=== PATIENT | male | born 1965 | race Caucasian/White ===

== ENCOUNTER 2024-02-24 10:30 | Day surgery (SDC) | payer BC, SELFPAY ==
[2024-02-24] VITALS (13 sets, daily range): BP systolic 105–141; BP diastolic 66–78; BMI 29.8
[2024-02-24 11:20] LABS: INR 2.05; PT 23.2 Sec (11.4-14.6)
[2024-02-24] MEDS: LOW STRENGTH ASPIRIN 324 MG PO (12:00)
--- NOTE | 2024-02-24 13:19 | ITS.CL.CATH ---
[employer] - Catheterization
Cardiac Catheterization
Procedure Report:
CARDIAC CATHETERIZATION REPORT
Date of Procedure: 02/24/2024
Referring: Emigdio Titus MD
Indication: Angina with known CAD
�
HEMODYNAMIC DATA
AO: 108/60
LV: Not done
�
LEFT VENTRICULOGRAPHY: Not performed due to presence of mechanical aortic valve
�
CORONARY ANGIOGRAPHY
Dominance: Right
Left Main: Normal
LAD: Moderate to severe calcification with 30% mid stenosis and otherwise mild luminal irregularities
Circumflex: The circumflex proper is normal. OM1 is tiny. OM 2 is a medium size vessel with 20% mid stenosis. OM 3 is tiny and there is a moderate to large sized OM 4 followed by three left posterolateral branches
RCA: Dominant vessel with 30% proximal stenosis. There is a widely patent mid RCA stent with no restenosis. The PDA and posterolateral branches are free of significant disease
�
Closure Device: None-the procedure was performed via the left radial artery. We only held last night's dose of warfarin and he will resume this evening
�
Radiation (mGy): 359
DAP (cm2.Gy): 22.0
Fluoroscopy time: 1.7 seconds
�
CONCLUSIONS
1:�Widely patent mid RCA stent with mild residual CAD
2:�Continue medical therapy
�
�
Copy to: Emigdio Titus MD, Tino Rodriguez MD
�
Momo Peterson MD, FORMERLY [facility], [facility]
== END 2024-02-24 16:35 | disposition home or self-care (01) ==
LOC: CATH 10:30
PROVIDERS: ATTENDING PHYSICIAN Internal Medicine Cardiovascular Disease; FAMILY PHYSICIAN Family Medicine; REFERRING PHYSICIAN Internal Medicine Cardiovascular Disease
DX: I25.119 Atherosclerotic heart disease of native coronary artery with unspecified angina pectoris (principal); Z95.2 Presence of prosthetic heart valve; Z95.5 Presence of coronary angioplasty implant and graft; G47.33 Obstructive sleep apnea (adult) (pediatric); Z79.01 Long term (current) use of anticoagulants; Z79.84 Long term (current) use of oral hypoglycemic drugs
CPT/HCPCS: 85610; 93454; C1894; Q9967